=== PATIENT | male | born 1985 | race Caucasian/White ===

== ENCOUNTER 2025-04-17 15:22 | Emergency (ER) | payer OTHER ==
[~2025-04-17] VITALS: Ht 167.6 cm; Wt 63.6 kg
[2025-04-17 15:24] VITALS: BP 128/89; PULSE 60; RESP 18; TEMP 97.9; O2SAT 100
[2025-04-17] MEDS ORDERED: BUPR1TAB45 SL (15:26)
[2025-04-17] MEDS: BUPRENORPHINE HCL/NALOXONE HCL 8-2 MG SUBLINGUAL TABLET SL ONE (17:19)
== END 2025-04-17 17:58 | disposition home or self-care (01) ==
LOC: EMS 15:22
DX: F11.23 Opioid dependence with withdrawal (principal); F41.9 Anxiety disorder, unspecified; R11.0 Nausea; Z76.0 Encounter for issue of repeat prescription; Z79.899 Other long term (current) drug therapy
CPT/HCPCS: 99283